=== PATIENT | female | born 1995 | race Caucasian/White ===

== ENCOUNTER 2019-04-02 01:42 | Emergency (ER) | payer SELFPAY ==
[~2019-04-02] VITALS: Ht 160 cm; Wt 63.5 kg
[2019-04-02 01:53] VITALS: Ht 160 cm; Wt 63.5 kg
[2019-04-02 02:48] VITALS: BP 116/32
== END 2019-04-02 02:48 | disposition home or self-care (01) ==
LOC: ED 01:42
DX: M72.2 Plantar fascial fibromatosis (principal)